=== PATIENT | male | born 1945 | race Caucasian/White ===

== ENCOUNTER 2017-05-21 00:41 | Inpatient (IN) | END 2017-05-22 15:30 | disposition home or self-care (01) | DRG 872 ==

== ENCOUNTER 2018-06-05 14:51 | Inpatient (IN) | payer OTHER ==
[~2018-06-05] VITALS: Ht 182.9 cm; Wt 127.0 kg
[~2018-06-05 14:51] MED LIST: AMOX1TAB10 PO; ATOR-2 PO; AZIT250T13 PO; BUPR150T18 PO; DICL100G37 TOP; DOCU-216 PO; HYDR-3498 PO; IPRA3AMP29 HHN; LANT3I SC; LEVO200T6 PO; LOSA100T15 PO; MONT10TA24 PO; MTF1000T PO; NEBU-113 MC; POLY17PO6 PO
[2018-06-05 14:55] VITALS: Ht 182.9 cm; Wt 127.0 kg
--- NOTE | 2018-06-05 15:17 | ERD ---
ER Documentation Chief Complaint Chief Complaint sob and cough since last night HPI 73-year-old man complains of shortness of breath, cough, wheezing since last night he does have a history of exercise-induced asthma but is not sure if today's symptoms are similar to his prior episodes of wheezing. He also complains of nasal congestion, rhinorrhea, and mild sore throat. Patient denies recent travel or antibiotic use, no sick contacts, no calf or leg swelling, no vomiting or diarrhea ROS All systems reviewed and are negative except as per history of present illness. Medications Home Meds Reported Medications Glimepiride* (Glimepiride*) 1 Mg Tablet, 1 MG PO WITH BREAKFAST DINNE, TAB 06/05/18 Liothyronine Sodium* (Cytomel*) 5 Mcg Tablet, 5 MCG PO BID, TAB 06/05/18 Metformin Hcl* (Metformin Hcl*) 1,000 Mg Tablet, 1000 MG PO WITH BREAKFAST DINNE, #60 TAB 06/05/18 Atorvastatin* (Atorvastatin*) 80 Mg Tablet, 80 MG PO QHS, #30 TAB 06/05/18 Discontinued Reported Medications Bupropion Hcl* (Bupropion Hcl SR*) 150 Mg Tablet.er, 150 MG PO BID, TAB.SA TAKE 1 TABLET BY MOUTH EVERYDAY FOR 3 DAYS, THEN 1 TABLET BY MOUTH TWICE DAILY 05/21/17 Atorvastatin* (Atorvastatin*) 80 Mg Tablet, 80 MG PO QHS, #30 TAB 05/21/17 Metformin* (Glucophage*) 1,000 Mg Tablet, 1000 MG PO BID, #60 TAB 05/21/17 Losartan Potassium* (Losartan Potassium*) 100 Mg Tablet, 100 MG PO DAILY, TAB 05/21/17 Montelukast Sodium* (Montelukast Sodium*) 10 Mg Tablet, 10 MG PO QHS, #30 TAB 05/21/17 Diclofenac Sodium* (Voltaren* Gel) 1% -100 Gm Gel, 2 GM TOP QID, #1 TUB 05/21/17 Discontinued Scripts Insulin Glargine* (Lantus*) 100 Unit/Ml Soln, 17 UNIT SC HS for 30 Days, #1 VIAL 6 Refills Prov:MARLENI CHRISTENSEN. 05/22/17 Ipratropium-Albuterol (Ipratropium-Albuterol) 0.5-3 Mg/3 Ml Ampul.neb, 3 ML HHN Q4H WHILE AWAKE PRN for sob, #30 AMP Prov:MARLENI CHRISTENSEN. 05/22/17 Docusate Sodium (Dok) 100 Mg Capsule, 100 MG PO BID for 30 Days, #60 CAP Prov:MARLENI CHRISTENSEN. 05/22/17 Polyethylene Glycol* (Miralax*) 17 Gm Powd.pack, 17 GM PO DAILY for 30 Days, #30 PACKET Prov:MARLENI CHRISTENSEN. 05/22/17 Azithromycin* (Azithromycin*) 250 Mg Tablet, 250 MG PO DAILY, #4 TAB Prov:MARLENI CHRISTENSEN. 05/22/17 Amoxicillin/Potassium Clav (Amox-Clav 875-125 mg Tablet) 875-125 mg Tab, 1 TAB PO BID for 8 Days, #16 TAB Prov:MARLENI CHRISTENSEN. 05/22/17 Levothyroxine Sodium* (Levothyroxine Sodium*) 200 Mcg Tablet, 175 MCG PO BEFORE BREAKFAST, #30 TAB Prov:MARLENI CHRISTENSEN. 05/22/17 Nebulizer (Aeroneb Go Nebuliser) 1 Each Each, 1 EACH MC Q4H, #1 Prov:MARLENI CHRISTENSEN. 05/22/17 Hydrocodone Bit-Acetaminophen* (Jeffers*) 5-325 Mg Tab, 1 TAB PO Q6 PRN for PAIN, #20 TAB Prov:KALANI MONTANO 03/02/15 Allergies Allergies: Coded Allergies: No Known Allergy (Unverified , 06/05/18) PMhx/Soc Paroxysmal atrial fibrillation, diabetes mellitus type 2, chronic hypothyroidism, obesity, hypertension, hypercholesterolemia History of Surgery: Yes (Rt in guinasl hernia repair) Anesthesia Reaction: No Hx Neurological Disorder: No Hx Respiratory Disorders: Yes (Asthma) Hx Cardiac Disorders: Yes (A-fib) Hx Psychiatric Problems: No Hx Miscellaneous Medical Probl: Yes Hx Alcohol Use: No Hx Substance Use: No Hx Tobacco Use: No Smoking Status: Never smoker FmHx Family History: diabetes Physical Exam Vitals Vital Signs Date Temp Pulse Resp B/P (MAP) Pulse Ox O2 O2 Flow FiO2 Time Delivery Rate 06/05/18 111 18 154/84 99 Nasal 2.0 16:36 (107) Cannula 06/05/18 Nasal 2 16:35 Cannula 06/05/18 102 22 100 Nasal 3.0 15:41 Cannula 06/05/18 98.3 110 22 120/87 94 14:55 (98) Physical Exam GENERAL: Well-developed, dyspneic, afebrile HEENT: Moist mucous membranes, pink conjunctiva, no cervical spine tenderness or step-off deformities, no goiter, no jaundice or icterus, extraocular movements intact without pain. No submandibular induration, and no pharyngeal erythema NEURO: Alert and oriented 3, cranial nerves II through XII intact bilaterally, pupils equal round reactive to light, no focal deficits or facial asymmetry, sensation intact distally Strength 5/5 in upper and lower extremities bilaterally CARDIAC: Tachycardic and regular LUNGS: Poor breath sounds bilaterally ABDOMEN: Soft nontender, no guarding, no rigidity, no rebound, no psoas sign no obturator sign. SKIN: Warm and dry to touch, no abrasions, contusions, or hematomas, no lacerations, no ecchymosis, no target lesions, and without ulcers EXTREMITIES: No clubbing cyanosis or edema, calves are bilaterally symmetrical, no Homans sign, no popliteal cord sign. Distal pulses equal and bilateral PSYCH: Normal affect without agitation or irritability Result Diagram: 06/05/18 1524 06/05/18 1524 Results 24 hrs Laboratory Tests Test 06/05/18 15:24 White Blood Count 14.0 10^3/ul Red Blood Count 4.08 10^6/ul Hemoglobin 13.2 g/dl Hematocrit 41.0 % Mean Corpuscular Volume 100.5 fl Mean Corpuscular Hemoglobin 32.4 pg Mean Corpuscular Hemoglobin Concent 32.2 g/dl Red Cell Distribution Width 12.6 % Platelet Count 218 10^3/UL Mean Platelet Volume 11.0 fl Immature Granulocytes % 0.400 % Neutrophils % 84.3 % Lymphocytes % 8.3 % Monocytes % 4.6 % Eosinophils % 2.1 % Basophils % 0.3 % Nucleated Red Blood Cells % 0.0 /100WBC Immature Granulocytes # 0.050 10^3/ul Neutrophils # 11.8 10^3/ul Lymphocytes # 1.2 10^3/ul Monocytes # 0.7 10^3/ul Eosinophils # 0.3 10^3/ul Basophils # 0.0 10^3/ul Nucleated Red Blood Cells # 0.0 10^3/ul Sodium Level 140 mmol/L Potassium Level 4.9 mmol/L Chloride Level 105 mmol/L Carbon Dioxide Level 26 mmol/L Anion Gap 9 Blood Urea Nitrogen 26 mg/dl Creatinine 1.22 mg/dl Est Glomerular Filtrat Rate mL/min mL/min Glucose Level 158 mg/dl Calcium Level 9.1 mg/dl Total Bilirubin 0.4 mg/dl Direct Bilirubin 0.00 mg/dl Indirect Bilirubin 0.4 mg/dl Aspartate Amino Transf (AST/SGOT) 42 IU/L Alanine Aminotransferase (ALT/SGPT) 28 IU/L Alkaline Phosphatase 89 IU/L Troponin I < 0.012 ng/ml B-Type Natriuretic Peptide 1020 PG/ML Total Protein 8.3 g/dl Albumin 4.3 g/dl Globulin 4.00 g/dl Albumin/Globulin Ratio 1.07 Lipase 20 U/L Current Medications Medications Dose Sig/Carole Start Time Status Last (Trade) Ordered Route PRN Stop Time Admin Dose Reason Admin Aspirin 324 mg ONCE ONCE 06/05/18 DC 06/05/18 (Aspirin) PO 15:30 15:27 06/05/18 15:31 Albuterol 10 mg ONCE STAT 06/05/18 DC 06/05/18 (Proventil INH 15:20 15:41 0.5% (Neb)) 06/05/18 15:22 125 mg ONCE STAT 06/05/18 DC 06/05/18 Methylprednis IV 15:20 15:27 olone Sodium 06/05/18 15:22 Succinate (Solu-Medrol) Furosemide 60 mg ONCE ONCE 06/05/18 DC (Lasix) IV 16:30 06/05/18 16:46 IV Flush 3 ml PER 06/05/18 (NS 3 ml) PROTOCOL IV 16:30 Ondansetron 4 mg Q6H PRN 06/05/18 UNV HCl (Zofran IV NAUSEA 16:30 Inj) AND/OR VOMITING 650 mg Q6H PRN 06/05/18 Acetaminophen PO PAIN 16:30 (Tylenol LEVEL 1-3 OR Tab) FEVER 1 tab Q6H PRN 06/05/18 Acetaminophen PO PAIN 16:30 / LEVEL 4-6 Hydrocodone Bitart (Jeffers (5/325)) Albuterol/ 3 ml Q6HWA RESP 06/05/18 DC Ipratropium THERAPY HHN 20:00 (Duoneb) 06/05/18 20:00 Albuterol/ 3 ml Q2H RESP 06/05/18 DC Ipratropium THERAPY PRN 17:00 (Duoneb) HHN 06/05/18 17:00 shortness of breath Budesonide 0.5 mg BID RESP 06/05/18 (Pulmicort THERAPY HHN 20:00 (Neb)) 100 ml @ Q24H IVPB 06/05/18 DC Levofloxacin/ 100 mls/hr 17:00 Dextrose 06/05/18 17:00 Azithromycin 250 ml @ Q24H IVPB 06/05/18 UNV 250 mls/hr 17:00 80 mg QHS PO 06/05/18 Atorvastatin 21:00 Calcium (Lipitor) 5 mcg BID PO 06/05/18 UNV Liothyronine 21:00 Sodium (Cytomel) Diltiazem 180 mg DAILY PO 06/05/18 HCl 17:00 (Cardizem Cd) 1.25 mg Q6H RESP 06/05/18 Levalbuterol THERAPY HHN 20:00 (Xopenex Neb) 1.25 mg Q4H RESP 06/05/18 Levalbuterol THERAPY PRN 17:00 (Xopenex HHN Neb) shortness of breath Ipratropium 0.5 mg Q6HWA RESP 06/05/18 [place] THERAPY HHN 20:00 (Atrovent 0.02% (Neb)) Ipratropium 0.5 mg Q4H RESP 06/05/18 [place] THERAPY PRN 17:00 (Atrovent HHN 0.02% SHORTNESS OF (Neb)) BREATH Promethazine 5 ml Q4H PRN 06/05/18 HCl/ PO COUGH 17:00 Codeine (Phenergan/ Codeine) Ipratropium 2 spray TID NASAL 06/05/18 [place] 21:00 (Atrovent Nasal) Fluticasone 1 spray BID NASAL 06/05/18 Propionate 21:00 (Flonase 0.05% Nasal) Discontinue ONCE ONCE 06/05/18 UNV Miscellaneous current oral XX 17:30 sulfonylur... 06/05/18 17:31 Information (* Miscellaneous Pharmacy Order) Diagnostic 1 ea 02 XX 06/06/18 Test (Pha) 02:00 (Accu-Chek) Insulin 18 units DAILY@199906/05/18 Glargine SC 20:00 (Lantus) Insulin 6 unit WITH MEALS 06/05/18 Aspart SC 18:00 (Novolog Insulin Pen) ONCE ONCE 06/05/18 DC Miscellaneous HYPOGLYCEMIA XX 17:30 PROTOCOL 06/05/18 17:45 Information w... (* Miscellaneous Pharmacy Order) Insulin NOVOLOG WITH MEALS 06/05/18 Aspart *MILD* BEDTIME SC 18:00 (Novolog ALGORITHM Insulin Pen) Discontinue ONCE ONCE 06/05/18 DC Miscellaneous all previ... XX 17:30 06/05/18 17:45 Information (* Miscellaneous Pharmacy Order) Sodium 1,000 ml @ Q24H IV 06/05/18 Chloride 40 mls/hr 17:30 06/06/18 18:29 Aspirin 81 mg DAILY PO 06/06/18 (Aspirin) 09:00 Procedures/MDM IV line was established patient was placed on environmental monitoring specialist rhythm strip revealed a narrow complex tachycardia at 110 bpm with upright P and T waves. Simeon tariq was afebrile. I do not suspect sepsis EKG performed, read by me revealed atrial fibrillation with rapid ventricular rate at 105 bpm, normal axis, narrow QRS complex, no concerning ST elevations or depressions noted 1 view chest x-ray performed, read by me revealed mild congestion bilaterally, no acute infiltrates, no pneumothorax. I administered albuterol 10 mg via nebulizer and methylprednisolone 125 mg IV x1. I also administered aspirin 324 mg p.o. for cardioprotective measures CBC reveals mild leukocytosis of 14, electrolytes revealed dehydration with a BUN/creatinine of 26/1.2, liver function tests are unremarkable, troponin was negative, influenza swabs are negative, BNP elevated. Given the patient's initial symptoms I administered furosemide 60 mg IV x1 as well Critical Care: Time: 49 minutes, this was time separate from other billable procedures. Treatments/Evaluations: Close monitoring and treatment of unstable vital signs, cardiorespiratory, and neurologic status, while maintaining tight balance of fluid, respiratory, and cardiac interventions. Patient remains symptomatic although his initial dyspnea and tachycardia have improved. He will be admitted to telemetry setting for continued medical management and cardiology consultation. Departure Diagnosis: Primary Impression: Atrial fibrillation with RVR Additional Impressions: Viral URI Acute dehydration CHF (congestive heart failure) Heart failure type: systolic Heart failure chronicity: acute Qualified Codes: I50.21 - Acute systolic (congestive) heart failure Condition: Fair JOHNATHAN GARCIA MD Jun 05, 2018 15:17
[2018-06-05] MEDS ORDERED: METHYLPREDNISOLONE 125 MG INJ IV STA (15:20)
[2018-06-05] MEDS ORDERED: ALBUTEROL 0.5% (NEB) 2.5 MG/0.5 ML AMP INH STA (15:20)
[2018-06-05] MEDS ORDERED: ASPIRIN 81 MG TAB PO ONE (15:30)
[2018-06-05] MEDS ORDERED: ATOR-2 PO (15:55)
[2018-06-05] MEDS ORDERED: METF100010 PO (15:55)
[2018-06-05] MEDS ORDERED: GLIM1TAB2 PO (15:56)
[2018-06-05] MEDS ORDERED: LIOT5TAB3 PO (15:56)
[2018-06-05] MEDS ORDERED: FUROSEMIDE 40 MG INJ IV ONE (16:30)
[2018-06-05] MEDS ORDERED: ACETAMINOPHEN 325 MG TAB PO PRN (16:30)
[2018-06-05] MEDS ORDERED: NACL 0.9% 3 ML SYG IV SCH (16:30)
[2018-06-05] MEDS ORDERED: ONDANSETRON 4 MG INJ IV PRN (16:30)
[2018-06-05] MEDS ORDERED: HYDROCODONE/APAP (5/325) TAB PO PRN (16:30)
[2018-06-05] MEDS ORDERED: LEVOFLOXACIN 500MG/D5W (PMX) 100 ML IVPB SCH (17:00)
[2018-06-05] MEDS ORDERED: ALBUTEROL/IPRATROPIUM (NEB) 3 ML AMP HHN PRN (17:00)
[2018-06-05] MEDS ORDERED: AZITHROMYCIN 500MG/NS (PMX) 250 ML IVPB SCH (17:00)
[2018-06-05] MEDS ORDERED: LEVALBUTEROL (NEB) 1.25 MG/0.5 ML AMP HHN PRN (17:00)
[2018-06-05] MEDS ORDERED: PROMETHAZINE/CODEINE 5ML CUP PO PRN (17:00)
[2018-06-05] MEDS ORDERED: IPRATROPIUM (NEB) 0.5 MG/2.5 ML AMP HHN PRN (17:00)
--- NOTE | 2018-06-05 17:14 | HP ---
Date/Time of Note Date/Time of Note DATE: 06/05/18 TIME: 17:14 Assessment/Plan VTE Prophylaxis Pharmacological prophylaxis: other Lines/Catheters IV C[facility]ter Type (from [facility] Saline Lock Assessment/Plan Hospital Course Objective Physical exam General: Patient is laying in bed and answers questions appropriately Mentation: Patient is alert and oriented 4, Head: Normocephalic atraumatic Eyes: EOMI, pupils reactive to light Neck: Supple, nontender, midline Respiratory: Coarse to auscultation bilaterally Cardiovascular: regular rate, no obvious murmurs Gastrointestinal: non-tender to palpation, bowel sounds heard. Neurological: Moves all extremities spontaneously Skin: No new skin lesions Assessment and plan Acute hypoxic respiratory distress -Secondary to uncontrolled cough -Patient likely has a viral upper respiratory infection versus developing pneumonia -BNP is elevated however checks x-ray is completely clear, at this time his sh ortness of breath is only caused by the cough so I do not feel CHF is the likely cause however will obtain echocardiogram. Sepsis, upper respiratory versus developing lower respiratory source -Lactic acid pending -Blood cultures pending Upper respiratory infection :viral versus developing pneumonia -IV azithromycin, patient follows with in the category of community-acquired pneumonia -Levalbuterol, ipratropium nebulizer -Budesonide nebulizer -Flu negative Cough -Given a dose of steroids in the ED -Codeine-based cough syrup -Secondary to above upper respiratory infection Atrial fibrillation with near RVR -Patient not on any rate controlling medication, also by choice is not on any anticoagulant. Patient does not like the risks associated with taking an anticoagulant, patient does understand all risks including stroke and other issues related to not anticoagulating and accepts all those risks. -Rate controlled however is on the higher limits -Cardiology consulted -We will start patient on mild to moderate dose diltiazem ER -Patient likely volume depleted, with clear chest x-ray and no overt symptoms of CHF other than a mildly elevated BNP, will gently hydrate, 1 dose only, which should also help the A. fib heart rate Diabetes mellitus -Insulin while in house Dyslipidemia -Continue home meds Disposition -Await cardiology consultation -Continue nebulizer treatment Result Diagram: 06/05/18 1524 06/05/18 1524 Results 24hrs Laboratory Tests Test 06/05/18 15:24 White Blood Count 14.0 #H Red Blood Count 4.08 L Hemoglobin 13.2 L Hematocrit 41.0 L Mean Corpuscular Volume 100.5 Mean Corpuscular Hemoglobin 32.4 Mean Corpuscular Hemoglobin Concent 32.2 Red Cell Distribution Width 12.6 Platelet Count 218 Mean Platelet Volume 11.0 H Immature Granulocytes % 0.400 Neutrophils % 84.3 H Lymphocytes % 8.3 L Monocytes % 4.6 Eosinophils % 2.1 Basophils % 0.3 Nucleated Red Blood Cells % 0.0 Immature Granulocytes # 0.050 H Neutrophils # 11.8 H Lymphocytes # 1.2 Monocytes # 0.7 Eosinophils # 0.3 Basophils # 0.0 Nucleated Red Blood Cells # 0.0 Sodium Level 140 Potassium Level 4.9 Chloride Level 105 Carbon Dioxide Level 26 Anion Gap 9 Blood Urea Nitrogen 26 H Creatinine 1.22 Est Glomerular Filtrat Rate mL/min Glucose Level 158 Calcium Level 9.1 Total Bilirubin 0.4 Direct Bilirubin 0.00 Indirect Bilirubin 0.4 Aspartate Amino Transf (AST/SGOT) 42 Alanine Aminotransferase (ALT/SGPT) 28 Alkaline Phosphatase 89 Troponin I < 0.012 B-Type Natriuretic Peptide 1020 H Total Protein 8.3 H Albumin 4.3 Globulin 4.00 H Albumin/Globulin Ratio 1.07 Lipase 20 L HPI/ROS Admit Date/Time Admit Date/Time Hx of Present Illness Patient is a 73-year-old male with a past medical history significant for c hronic A. fib, diabetes mellitus, hypothyroidism, dyslipidemia, exercise-induced asthma who presents to [facility] for persistent cough causing shortness of breath and subsequent chest wall pain. Patient states that he has been around his girlfriend who is having similar symptoms of upper respiratory issues as well as cough. Patient states that for the past day he has had a rula gged nose as well as persisting cough that is causing shortness of breath. He states that also whenever he coughs there is chest wall tightness causing chest pain. There is no chest pain whatsoever when he is not coughing. Patient currently is alert and oriented and doing well except for occasionally he does need to cough. Patient also states that there is significant nasal congestion however denies any fevers or chills at this time. Patient denies abdominal pain, leg pain, nausea, vomiting, headache. PMH/Family/Social Past Medical History Medications Current Medications IV Flush (NS 3 ml) 3 ml PER PROTOCOL IV ; Start 06/05/18 at 16:30; Status UNV Ondansetron HCl (Zofran Inj) 4 mg Q6H PRN IV NAUSEA AND/OR VOMITING; Start 06/05/18 at 16:30; Status UNV Acetaminophen (Tylenol Tab) 650 mg Q6H PRN PO PAIN LEVEL 1-3 OR FEVER; Start 06/05/18 at 16:30; Status UNV Acetaminophen/ Hydrocodone Bitart ([place] (5/325)) 1 tab Q6H PRN PO PAIN LEVEL 4-6; Start 06/05/18 at 16:30; Status UNV Budesonide (Pulmicort (Neb)) 0.5 mg BID RESP THERAPY HHN ; Start 06/05/18 at 20:00; Status UNV Azithromycin 250 ml @ 250 mls/hr Q24H IVPB ; Start 06/05/18 at 17:00; Status UNV Atorvastatin Calcium (Lipitor) 80 mg QHS PO ; Start 06/05/18 at 21:00; Status UNV Liothyronine Sodium (Cytomel) 5 mcg BID PO ; Start 06/05/18 at 21:00; Status UNV Diltiazem HCl (Cardizem Cd) 180 mg DAILY PO ; Start 06/05/18 at 17:00; Status UNV Levalbuterol (Xopenex Neb) 1.25 mg Q6H RESP THERAPY HHN ; Start 06/05/18 at 20:00; Status UNV Levalbuterol (Xopenex Neb) 1.25 mg Q4H RESP THERAPY PRN HHN shortness of breath; Start 06/05/18 at 17:00; Status UNV Ipratropium [place] (Atrovent 0.02% (Neb)) 0.5 mg Q6HWA RESP THERAPY HHN ; Start 06/05/18 at 20:00; Status UNV Ipratropium [place] (Atrovent 0.02% (Neb)) 0.5 mg Q4H RESP THERAPY PRN HHN SH ORTNESS OF BREATH; Start 06/05/18 at 17:00; Status UNV Promethazine HCl/ Codeine (Phenergan/ Codeine) 5 ml Q4H PRN PO COUGH; Start 06/05/18 at 17:00; Status UNV Ipratropium [place] (Atrovent Nasal) 2 spray TID NASAL ; Start 06/05/18 at 21:00; Status UNV Fluticasone Propionate (Flonase 0.05% Nasal) 1 spray BID NASAL ; Start 06/05/18 at 21:00; Status UNV Miscellaneous Information (* Miscellaneous Pharmacy Order) Discontinue current oral sulfonylur... ONCE ONCE XX ; Start 06/05/18 at 17:30; Stop 06/05/18 at 17:31; Status UNV Diagnostic Test (Pha) (Accu-Chek) XX ; Start 06/06/18 at 02:00; Status UNV Insulin Glargine (Lantus) 18 units DAILY@2000 SC ; Start 06/05/18 at 20:00; Status UNV Insulin Aspart (Novolog Insulin Pen) 6 unit WITH MEALS SC ; Start 06/05/18 at 18:00; Status UNV Miscellaneous Information (* Miscellaneous Pharmacy Order) HYPOGLYCEMIA PROTOCOL w... ONCE ONCE XX ; Start 06/05/18 at 17:30; Stop 06/05/18 at 17:31; Status UNV Insulin Aspart (Novolog Insulin Pen) NOVOLOG *MILD* ALGORITHM WITH MEALS BEDTIME SC ; Start 06/05/18 at 18:00; Status UNV Miscellaneous Information (* Miscellaneous Pharmacy Order) Discontinue all previ... ONCE ONCE XX ; Start 06/05/18 at 17:30; Stop 06/05/18 at 17:31; Status UNV Sodium Chloride 1,000 ml @ 40 mls/hr Q24H IV ; Start 06/05/18 at 17:30; Stop 06/06/18 at 18:29; Status UNV Coded Allergies: No Known Allergy (Unverified , 06/05/18) Social History Smoking Status: Never smoker Exam/Review of Systems Vital Signs Vitals Vital Signs Date Temp Pulse Resp B/P (MAP) Pulse Ox O2 O2 Flow FiO2 Time Delivery Rate 06/05/18 111 18 154/84 99 Nasal 2.0 16:36 (107) Cannula 06/05/18 98.3 14:55 JOHNATHAN HERNANDEZ Jun 05, 2018 17:14
[2018-06-05] MEDS ORDERED: SOD CHLORIDE 0.9% 1,000 ML IV SCH (17:30)
[2018-06-05] MEDS ORDERED: GLUCOSE GEL 15 GRAM TUBE PO PRN ×2 (18:00)
[2018-06-05] MEDS ORDERED: GLUCOSE GEL 15 GRAM TUBE BUCCAL PRN (18:00)
[2018-06-05] MEDS ORDERED: GLUCAGON 1 MG INJ IM PRN (18:00)
[2018-06-05] MEDS ORDERED: DEXTROSE 50% 50 ML SYRINGE IV PRN ×2 (18:00)
[2018-06-05] MEDS ORDERED: NITROGLYCERIN 50 MG/D5W (PMX) 0 ML ONE (18:22)
[2018-06-05] MEDS: DILTIAZEM (CD) 180 MG CAP PO SCH (18:37)
[2018-06-05] MEDS: INSULIN ASPART [NOVOLOG] 3 ML PEN SC SCH ×3 (19:13→22:50)
[2018-06-05] MEDS ORDERED: INSULIN GLARGINE [LANTus] (100 UNITS/ML) SYG SC SCH (20:00)
[2018-06-05] MEDS ORDERED: ALBUTEROL/IPRATROPIUM (NEB) 3 ML AMP HHN SCH (20:00)
--- NOTE | 2018-06-05 20:08 | CONS ---
DATE OF ADMISSION: 06/05/2018 DATE OF CONSULTATION: 06/05/2018 TYPE OF CONSULTATION: Cardiology. REASON FOR CONSULTATION: Atrial fibrillation. REQUESTING PHYSICIAN: Darell Martinez MD, from the hospitalist service. HISTORY OF PRESENT ILLNESS: Mr. Epperson is a 73-year-old male with a history of atrial fibrillation on aspirin per patients choice, diabetes mellitus, dyslipidemia, who presented with a cough productive of yellow sputum, subjective fevers, nasal congestion, shortness of breath and chest pain with cough only. Upon arrival, temperature was 98.3, blood pressure 120/87, pulse 110, respiration 22, satting 94%. The patient's labs are notable for white blood cell count of 14, hemoglobin 13.2, platelet count of 218, sodium 140, potassium 4.9, creatinine 1.22, BUN 26, AST 42, ALT 28, BNP of 1020, troponin negative, lipase 20, albumin 4.3. The patient underwent a chest x-ray revealing no evidence of acute intrathoracic pathology. The patient's electrocardiogram revealed atrial fibrillation, rate of 105, normal axis, normal intervals, nonspecific ST and T-wave abnormalities diffusely. The patient is to be admitted to the floor at this time waiting in the ER. The patient has been treated at this time with nebulized treatments and given dose of levofloxacin. The patient has been placed on a diltiazem once a day for heart rate control. PAST MEDICAL HISTORY: As above in HPI. MEDICATIONS CURRENTLY IN HOSPITAL: 1. Aspirin 81 mg daily. 2. Lipitor 80 mg at bedtime. 3. Cytomel. 4. Atrovent. 5. Flonase. 6. Pulmicort. 7. Xopenex. 8. Lantus. 9. Azithromycin. 10. Diltiazem-CD 180 mg daily. 11. Xopenex. 12. Phenergan. ALLERGIES: NO KNOWN DRUG ALLERGIES. SOCIAL HISTORY: No current tobacco, EtOH or illicit drug use. FAMILY HISTORY: No history of sudden cardiac or early CAD. REVIEW OF SYSTEMS: As above in HPI. CONSTITUTIONAL: No fevers, chills. PULMONARY: Shortness of breath. CARDIOVASCULAR: Atrial fibrillation. GASTROINTESTINAL: No vomiting. GENITOURINARY: No hematuria. MUSCULOSKELETAL: Degenerative joint disease. PSYCHIATRIC: The patient denies depression. NEUROLOGIC: No documented history of CVA. PHYSICAL EXAMINATION VITAL SIGNS: Temperature of 98.3, blood pressure 156/84, pulse 97, respiratory rate 18, satting 94% on room air. GENERAL: The patient is alert, awake, in no acute distress, complaining of shortness of breath. NECK: JVP approximately is 8 to 9 cm of water. CHEST: Fair air movement throughout. HEART: Irregularly irregular, I/ systolic murmur. ABDOMEN: Positive bowel sounds, soft. EXTREMITIES: No significant pitting edema, 1+ pulses bilateral posterior tibial. LABORATORIES: Most recently from today with a lactic acid of 2.0. No further new labs for my review at this time. IMAGING STUDIES: As above in HPI. No further imaging for my review at this time. ELECTROCARDIOGRAM: As above in HPI. No further electrocardiograms for my review at this time. IMPRESSION: 1. Atrial fibrillation with intermittent mild rapid ventricular response. 2. Hypertension. 3. Dyslipidemia. 4. Upper respiratory infection. 5. Leukocytosis. RECOMMENDATIONS: 1. At this time, we would admit the patient to telemetry monitoring to follow rhythm and rate control closely. 2. Continue the patient's diltiazem-CD for multiple rate control and we give IV push diltiazem for acute rate control as necessary. 3. Continue the patient's aspirin at this time for prophylaxis against cardiovascular events. The patient per choice does not want systemic anticoagulation. 4. Continue the patient's antibiotics and follow up all culture data. 5. Continue the patient's bronchodilators. 6. Check a 2D echo for this patient's ejection fraction, wall motion and major valve abnormalities and we will check a TSH to be sure subclinical hyperthyroidism is not contributing to bouts of tachyarrhythmia. Thank you for allowing me to take part in the care of this patient. I will continue to follow him very closely with you with further recommendations to be made as the patient progresses through his inpatient hospital clinical course. Dictated By: JUDITH STRATTON/CHRISTINA Conf#: [id number] DID#: [id number] CC: DARELL GARCIA MD; DARELL MARTINEZ MD;*End* MTDD
[2018-06-05] MEDS: LIOTHYRONINE 5 MCG TAB PO SCH (20:54)
[2018-06-05] MEDS: IPRATROPIUM 0.03% 30 ML NASAL SPRAY NASAL SCH (21:00)
[2018-06-05] MEDS ORDERED: ATORVASTATIN 80 MG TAB PO SCH (21:00)
[2018-06-05 21:36] VITALS: PULSE 89
[2018-06-05] MEDS: IPRATROPIUM (NEB) 0.5 MG/2.5 ML AMP HHN SCH (21:46)
[2018-06-05] MEDS: BUDESONIDE (NEB) 0.5MG/2ML AMP HHN SCH (21:47)
[2018-06-05] MEDS: LEVALBUTEROL (NEB) 1.25 MG/0.5 ML AMP HHN SCH (21:47)
[2018-06-05] MEDS: FLUTICASONE 0.05% 16 GM NAS SPRAY NASAL SCH (22:50)
[2018-06-06] VITALS (8 sets, daily range): BP systolic 91–135; BP diastolic 59–86; PULSE 63–98; RESP 18–19
[2018-06-06] MEDS: LEVALBUTEROL (NEB) 1.25 MG/0.5 ML AMP HHN SCH ×3 (01:43→13:53)
[2018-06-06] MEDS ORDERED: ACCU-CHEK XX SCH ×2 (02:00→11:20)
[2018-06-06] MEDS ORDERED: INSULIN ASPART [NOVOLOG] 3 ML PEN SC ONE (03:30)
[2018-06-06] MEDS: IPRATROPIUM (NEB) 0.5 MG/2.5 ML AMP HHN SCH ×2 (08:00→13:53)
[2018-06-06] MEDS: IPRATROPIUM 0.03% 30 ML NASAL SPRAY NASAL SCH ×2 (08:20→12:38)
[2018-06-06] MEDS: DILTIAZEM (CD) 180 MG CAP PO SCH (08:30)
[2018-06-06] MEDS: LIOTHYRONINE 5 MCG TAB PO SCH (08:32)
[2018-06-06] MEDS: INSULIN ASPART [NOVOLOG] 3 ML PEN SC SCH ×4 (08:45→12:37)
[2018-06-06] MEDS ORDERED: ASPIRIN 81 MG TAB PO SCH (09:00)
[2018-06-06] MEDS: FLUTICASONE 0.05% 16 GM NAS SPRAY NASAL SCH (09:50)
[2018-06-06] MEDS: BUDESONIDE (NEB) 0.5MG/2ML AMP HHN SCH (09:59)
[2018-06-06] MEDS ORDERED: APIXABAN 5 MG TABLET PO SCH (11:30)
[2018-06-06] MEDS ORDERED: MAGNESIUM SULFATE 2 GM/50 ML 50 ML IVPB ONE (11:30)
--- NOTE | 2018-06-06 11:36 | PDOCDIS ---
Discharge Instructions CONDITION [id number] Patient Condition: [id number] Stable HOME CARE INSTRUCTIONS: [id number] Your diet recommendation is: [id number] [id number] Activity Restrictions: [id number] Slowly Increase Activity Rest between Activity FOLLOW UP/APPOINTMENTS Follow-up Plan 1. Please follow-up with your primary care doctor as soon as possible, you have a lot of abnormalities that need to be corrected 2. Also follow-up with your gas meter installer helper. Dr Charlton. I have spoken with him, he is awaiting a call 3. Also follow-up with your salon designer, Dr. Landon, they have been notified and will be expecting a call. 4. Stay compliant with your medications. It is very important. MARLENI CHRISTENSEN Jun 06, 2018 11:36
[2018-06-06] MEDS ORDERED: LEVOTHYROXINE 100 MCG TAB PO SCH (12:00)
--- NOTE | 2018-06-06 12:57 | RADRPT ---
Vent Rate: 90 bpm RR Interval: 0 msec WI Interval: 0 msec QRS Duration: 86 msec QT Interval: 358 msec QTC Interval: 437 msec P-R-T Hooper: 0 - 75 - -58 degrees Atrial fibrillation Nonspecific ST and T wave abnormality , probably digitalis effect Abnormal ECG Electronically Signed By: Jonah Fernandez [id number]
[2018-06-06] MEDS ORDERED: INSULIN GLARGINE [LANTus] (100 UNITS/ML) SYG SC ONE (13:00)
[2018-06-06] MEDS ORDERED: AZIT250T13 PO (13:56)
[2018-06-06] MEDS ORDERED: ASPI-831 PO (13:56)
[2018-06-06] MEDS ORDERED: LEVO100T8 PO (13:56)
[2018-06-06] MEDS ORDERED: LANT3I SC (13:56)
[2018-06-06] MEDS ORDERED: IPRA4AER INHALATION (13:56)
[2018-06-06] MEDS ORDERED: DILT180C72 PO (13:56)
[2018-06-06] MEDS ORDERED: metFORMIN 500 MG TAB PO SCH (17:55)
--- NOTE | 2018-06-06 19:06 | RADRPT ---
Echocardiogram Report Patient Name: ROMEL CANCHOLA Gender: Male Date: 1945 Study Date: 06-Jun-2018 Incident Response Specialist: Susanna Herrera [facility] Location: 525 Ref. Physician: JOHNATHAN HERNANDEZ Quality: Adequate Procedures: Transthoracic echocardiogram with complete 2D, M-Mode, and doppler examination. Indications: Congestive Heart Failure. 2D/M Mode Doppler Measurement Value Normal Ranges Measurement Value Normal Ranges LVIDd 2D 5.0 3.5 - 5.6 cm AV Peak Jadon 1.1 m/sec LVIDs 2D 2.5 2.1 - 4.1 cm AV Peak PG 5.0 mmHg LVPWd 2D 1.2 0.6 - 1.1 cm LVOT Peak Jadon 0.8 m/sec IVSd 2D 1.1 0.6 - 1.1 cm LVOT Peak PG 3.0 mmHg AoR Diam 2D 2.9 2.0 - 3.7 cm TR Peak Jadon 2.8 m/sec LA/Ao 2D 1 0 - 1 TR Peak PG 32.0 mmHg LA Dimen 2D 3.9 2.3 - 4.0 cm RVSP 47.0 mmHg RA Pressure 15.0 Findings Left Ventricle: Normal left ventricular systolic function. Normal left ventricular cavity size. Mild concentric left ventricular hypertrophy. Ejection fraction is visually estimated at 60 %. Right Ventricle: Normal right ventricular systolic function. Mild enlargement of right ventricle. Left Atrium: The left atrium is normal in size. Right Atrium: There is mild enlargement of right atrium. Mitral Valve: Normal appearance and function of the mitral valve with trace physiologic regurgitation. Aortic Valve: Normal appearance of the aortic valve. No significant aortic stenosis or insufficiency. Tricuspid Valve: Normal appearance of the tricuspid valve. Estimated peak PA systolic pressure 47 mmHg. There is mild tricuspid regurgitation. Pulmonic Valve: Pulmonic valve not well visualized. Pericardium: Normal pericardium with no significant pericardial effusion. Aorta: Normal aortic root. IVC: Dilated IVC without respiratory collapse consistent with elevated right atrial pressure. Conclusions Normal left ventricular systolic function. Normal left ventricular cavity size. Mild concentric left ventricular hypertrophy. Ejection fraction is visually estimated at 60 %. Normal right ventricular systolic function. Mild enlargement of right ventricle. There is mild enlargement of right atrium. Normal appearance and function of the mitral valve with trace physiologic regurgitation. Normal appearance of the tricuspid valve. Estimated peak PA systolic pressure 47 mmHg. There is mild tricuspid regurgitation. Electronically Signed By: Osorio López 06-Jun-2018 19:05:39 -0800 Patient Name: ROMEL CANCHOLA Study Date: 06-Jun-2018 [id number]
--- NOTE | 2018-06-12 09:16 | DS ---
DATE OF ADMISSION: 06/05/2018 DATE OF DISCHARGE: 06/06/2018 PRESENTING COMPLAINTS: Chest pain, cough and shortness of breath. FINAL DIAGNOSEs: 1. Atrial fibrillation with intermittent mild rapid ventricular response, currently rate controlled. 2. Hypertension. 3. Dyslipidemia. 4. Upper respiratory infection. 5. Leukocytosis. 6. Chronic kidney disease. 7. Diabetes mellitus type 2 with suboptimal control. 8. Hypothyroidism with suboptimal home control. 9. Hyperkalemia, resolved. 10. Chronic hypochromic anemia. CONSULTS ON THE CASE: Dr. Osorio López for cardiology. INTERVENTIONS: The patient underwent a 2D echocardiogram that showed ejection fraction of 60% with e levation in his peak PA systolic pressure mildly of 47 and mild tricuspid regurgitation. SHORT HOSPITALIZATION COURSE: Full details are available in chart for review. SUMMARY: In summary, this patient came in with complaints of cough, shortness of breath and chest pa in and was found to be in mild rapid ventricular response from atrial fibrillation and was also found to have an upper respiratory tract infection causing the symptoms. However, all his chronic conditi ons were out of control including his diabetes as well as his hypothyroidism and even his blood press ure. The patient's control was improved, and he was recommended to stay in the hospital for continue d hospitalization until optimal control; however, the patient's requested to be discharged. He does have a primary care doctor and he follows with Dr. Charlton for endocrinology, and he promised that he w as going to see them as soon as possible. He did admit to not taking his medication and requested re fills of all his medicines, which are provided to him. We did communicate to him that his hypothyroi dism was poorly controlled. Apparently at home he had been only taking his Cytomel and was not takin g levothyroxine. I spoke with Dr. Charlton and he said he needed to be on both, so the Levothyroxine wa s re-prescribed. He was also started on Lantus in addition to his metformin, which he had not been t aking as well, which is the reason for his high blood sugar. He was started on empiric antibiotics f or an upper respiratory infection and was advised that he be continued with suboptimal control of his care and he will be probably going to end up with more sinister side effects. He verbalized underst anding. Again, we did offer to give the patient in house to ensure optimization of his chronic medic al conditions, but the patient declined and actually was very, very demanding to be discharged early. I was able to convince him to wait for cardiology to see him and get a relationship and information to facilitate outpatient followup, which he did and eventually he was discharged in stable condition to continue his care and treatment outpatient. DISCHARGE CONDITION: Stable. FINAL DIAGNOSES: As above. DISCHARGE MEDICATION: Please review the patient's chart. DIET: Recommended diet is 1800-calorie diabetic diet, low cholesterol, low fat. ACTIVITY: As tolerated with 3 days of 10 minutes of exercise recommended per week. FOLLOWUP: The patient will follow up with his primary care doctor. He will also follow up with Dr. Charlton for endocrinology, and he will also follow up with Dr. Osorio López for cardiology at the [facility]. Time spent on discharge coordination has been more than 90 minutes. Dictated By: MARLENI CHRISTENSEN MD BA/NTS Conf#: [id number] DID#: [id number] CC: JOHNATHAN HERNANDEZ MD; MARLENI CHRISTENSEN MD;*EndCC*
== END 2018-06-06 14:40 | disposition home or self-care (01) | DRG 308 ==
LOC: E/R 14:51 → TEL 16:40
PROVIDERS: ADMIT Internal Medicine; ATTEND Family Medicine
DX: I48.0 Paroxysmal atrial fibrillation (principal); I50.21 Acute systolic (congestive) heart failure; I13.0 Hypertensive heart and chronic kidney disease with heart failure and stage 1 through stage 4 chronic kidney disease, or unspecified chronic kidney disease; E03.9 Hypothyroidism, unspecified; E11.9 Type 2 diabetes mellitus without complications; E66.9 Obesity, unspecified; Z68.38 Body mass index [BMI] 38.0-38.9, adult; E78.00 Pure hypercholesterolemia, unspecified; E86.0 Dehydration; I11.0 Hypertensive heart disease with heart failure; J06.9 Acute upper respiratory infection, unspecified; N18.9 Chronic kidney disease, unspecified; E87.5 Hyperkalemia; D50.9 Iron deficiency anemia, unspecified; R06.03 Acute respiratory distress
CPT/HCPCS: 36415; 71045; 80048; 80053; 80061; 82962; 83036; 83605; 83690; 83735; 83880; 84439; 84443; 84481; 84484; 85025; 87040; 87400; 93005; 93306; 94640; 94644; 96374; J0456; J1815; J2930; J3475; J7030

== ENCOUNTER 2018-06-21 13:09 | Emergency (ER) | payer OTHER ==
[~2018-06-21] VITALS: Ht 182.9 cm; Wt 123.0 kg
[~2018-06-21 13:09] MED LIST changes: -AMOX1TAB10 PO; +ASPI-831 PO; -BUPR150T18 PO; -DICL100G37 TOP; +DILT180C72 PO; -DOCU-216 PO; +GLIM1TAB2 PO; -HYDR-3498 PO; -IPRA3AMP29 HHN; +IPRA4AER INHALATION; +LEVO100T8 PO; -LEVO200T6 PO; +LIOT5TAB3 PO; -LOSA100T15 PO; +METF100010 PO; -MONT10TA24 PO; -MTF1000T PO; -NEBU-113 MC; -POLY17PO6 PO
[2018-06-21 13:11] VITALS: Ht 182.9 cm; Wt 123.0 kg
[2018-06-21] MEDS ORDERED: SOD CHLORIDE 0.9% 1,000 ML IV STA (13:23)
[2018-06-21] MEDS ORDERED: LORAZEPAM 2 MG INJ IV ONE (13:30)
[2018-06-21] MEDS ORDERED: MECLIZINE 12.5 MG TAB PO ONE (13:30)
--- NOTE | 2018-06-21 14:11 | ERD ---
ER Documentation Chief Complaint Chief Complaint dizziness, diaphretic ongoing for 1wk, seen by pmd yesterday HPI 73-year-old gentleman history of atrial fibrillation not anticoagulated who presents to the emergency room complaining of dizziness. He states he is having episodes of dizziness and feeling diaphoretic and nauseated. This is been going on for approximately 1 week. He was told to come to the emergency room by his primary care physician who he saw yesterday. He denies any slurred speech but occasionally has ataxic gait. No motor weakness. Symptoms are moderate at this time but he does have associated nausea and vomiting that is nonbloody nonbilious. ROS All systems reviewed and are negative except as per history of present illness. Medications Home Meds Active Scripts Meclizine Hcl* (Meclizine Hcl*) 25 Mg Tablet, 25 MG PO Q8H PRN for DIZZINESS, #30 TAB Prov:LLUVIA ROOT MD 06/21/18 Insulin Glargine* (Lantus*) 100 Unit/Ml Soln, 24 UNIT SC DAILY, #1 VIAL 1 Refill Prov:MARLENI CHRISTENSEN 06/06/18 Albuterol/Ipratropium* (Combivent Respimat*) 20-100 Mcg/Inh - 4 Gm Aer.w.adap, 1 PUFF INHALATION Q4H WHILE AWAKE, #1 INHALER Prov:MARLENI CHRISTENSEN 06/06/18 Diltiazem Hcl* (Cardizem CD*) 180 Mg Cap.sr.24h, 180 MG PO DAILY, #30 TAB 1 Refill Prov:MARLENI CHRISTENSEN 06/06/18 Reported Medications Levothyroxine Sodium* (Levothyroxine Sodium*) 100 Mcg Tablet, 100 MCG PO BEFORE BREAKFAST, #30 TAB 06/21/18 Rivaroxaban* (Xarelto*) 20 Mg Tablet, 20 MG PO WITH DINNER, TAB 06/21/18 Liothyronine Sodium* (Cytomel*) 5 Mcg Tablet, 5 MCG PO BID, TAB 06/05/18 Metformin Hcl* (Metformin Hcl*) 1,000 Mg Tablet, 1000 MG PO WITH BREAKFAST DINNE, #60 TAB 06/05/18 Atorvastatin* (Atorvastatin*) 80 Mg Tablet, 80 MG PO QHS, #30 TAB 06/05/18 Discontinued Reported Medications Glimepiride* (Glimepiride*) 1 Mg Tablet, 1 MG PO WITH BREAKFAST DINNE, TAB 06/05/18 Discontinued Scripts Azithromycin* (Azithromycin*) 250 Mg Tablet, 250 MG PO DAILY, #4 TAB Prov:MARLENI CHRISTENSEN. 06/06/18 Levothyroxine Sodium* (Levothyroxine Sodium*) 100 Mcg Tablet, 200 MCG PO DAILY@06, #30 TAB 1 Refill Prov:MARLENI CHRISTENSEN. 06/06/18 Aspirin (Aspirin) 81 Mg Chew, 81 MG PO DAILY, #30 TAB 1 Refill Prov:MARLENI CHRISTENSEN. 06/06/18 Allergies Allergies: Coded Allergies: No Known Allergy (Unverified , 06/21/18) PMhx/Soc History of Surgery: Yes (RT INGUINAL HERNIA REPAIR) Anesthesia Reaction: No Hx Neurological Disorder: No Hx Respiratory Disorders: Yes (EXERCISE INDUCED ASTHMA, ASTHMA) Hx Cardiac Disorders: Yes (AF) Hx Psychiatric Problems: No Hx Miscellaneous Medical Probl: Yes (DM) Hx Alcohol Use: No Hx Substance Use: No Hx Tobacco Use: No Smoking Status: Never smoker FmHx Family History: No diabetes Physical Exam Vitals Vital Signs Date Temp Pulse Resp B/P (MAP) Pulse Ox O2 O2 Flow FiO2 Time Delivery Rate 06/21/18 83 18 137/88 99 Room Air 13:30 (104) 06/21/18 97.0 80 20 149/92 97 13:11 (111) Physical Exam General: Well developed, well nourished, no acute distress Head: Normocephalic, atraumatic. Eyes: Pupils equally reactive, EOM intact and consistent with possible vertical component to nystagmus ENT: Moist mucous membranes Neck: Supple, no lymphadenopathy Respiratory: Lungs clear bilaterally, no distress Cardiovascular: Irregular, no murmurs, rubs, or gallops Abdominal: Soft, non-tender, non-distended, no peritoneal signs : Deferred MSK: No edema, no unilateral swelling, 5/5 strength Neurologic: Alert and oriented, moving all extremities, normal speech, no focal weakness, no cerebellar signs Skin: No rash Psych: Normal mood Result Diagram: 06/21/18 1345 06/21/18 1345 Results 24 hrs Laboratory Tests Test 06/21/18 13:45 06/21/18 13:48 White Blood Count 10.7 10^3/ul Red Blood Count 4.03 10^6/ul Hemoglobin 12.9 g/dl Hematocrit 40.0 % Mean Corpuscular Volume 99.3 fl Mean Corpuscular Hemoglobin 32.0 pg Mean Corpuscular Hemoglobin Concent 32.3 g/dl Red Cell Distribution Width 12.7 % Platelet Count 216 10^3/UL Mean Platelet Volume 11.0 fl Immature Granulocytes % 0.400 % Neutrophils % 65.5 % Lymphocytes % 26.7 % Monocytes % 4.5 % Eosinophils % 2.5 % Basophils % 0.4 % Nucleated Red Blood Cells % 0.0 /100WBC Immature Granulocytes # 0.040 10^3/ul Neutrophils # 7.0 10^3/ul Lymphocytes # 2.9 10^3/ul Monocytes # 0.5 10^3/ul Eosinophils # 0.3 10^3/ul Basophils # 0.0 10^3/ul Nucleated Red Blood Cells # 0.0 10^3/ul Prothrombin Time 11.7 Sec Prothrombin Time Ratio 0.9 INR International Normalized Ratio 0.85 Activated Partial Thromboplast Time 25.8 Sec Sodium Level 139 mmol/L Potassium Level 4.7 mmol/L Chloride Level 109 mmol/L Carbon Dioxide Level 25 mmol/L Anion Gap 5 Blood Urea Nitrogen 21 mg/dl Creatinine 1.30 mg/dl Est Glomerular Filtrat Rate mL/min mL/min Glucose Level 260 mg/dl Calcium Level 9.0 mg/dl Total Bilirubin 0.4 mg/dl Direct Bilirubin 0.00 mg/dl Indirect Bilirubin 0.4 mg/dl Aspartate Amino Transf (AST/SGOT) 38 IU/L Alanine Aminotransferase (ALT/SGPT) 33 IU/L Alkaline Phosphatase 70 IU/L Troponin I < 0.012 ng/ml Total Protein 7.7 g/dl Albumin 3.9 g/dl Globulin 3.80 g/dl Albumin/Globulin Ratio 1.02 Bedside Glucose 251 mg/dL Current Medications Medications Dose Sig/Carole Start Time Status Last (Trade) Ordered Route PRN Stop Time Admin Dose Reason Admin Sodium 1,000 ml @ Q1H STAT 06/21/18 DC 06/21/18 Chloride 1,000 mls/hr IV 13:23 06/21/18 13:51 14:22 Meclizine 25 mg ONCE ONCE 06/21/18 DC 06/21/18 HCl PO 13:30 06/21/18 13:50 (Antivert) 13:31 Lorazepam 0.5 mg ONCE ONCE 06/21/18 DC 06/21/18 (Ativan) IV 13:30 06/21/18 13:50 13:31 Aspirin 162 mg ONCE ONCE 06/21/18 DC 06/21/18 (Aspirin) PO 14:30 06/21/18 14:46 14:31 Ondansetron 4 mg ER BRIDGE 06/21/18 HCl (Zofran PRN IV 14:30 06/22/18 Inj) NAUSEA/VOMITI 14:29 NG 650 mg ER BRIDGE 06/21/18 Acetaminophen PRN PO 14:30 06/22/18 (Tylenol .MILD PAIN 14:29 Tab) 1-3 OR TEMP Sodium 1,000 ml @ Q24H IV 06/21/18 Chloride 40 mls/hr 14:41 06/22/18 15:40 IV Flush 3 ml PER 06/21/18 (NS 3 ml) PROTOCOL IV 15:00 Ondansetron 4 mg Q6H PRN 06/21/18 HCl (Zofran IV 15:00 Inj) NAUSEA/VOMITI NG 650 mg Q6H PRN 06/21/18 Acetaminophen PO .PAIN 1-3 15:00 (Tylenol OR TEMP Tab) 1 tab Q6H PRN 06/21/18 Acetaminophen PO .PAIN 4-6 15:00 / Hydrocodone Bitart ([place] (5/325)) Meclizine 25 mg TID PRN 06/21/18 HCl PO dizziness 15:00 (Antivert) Procedures/MDM EKG, MONITORS, & DIAGNOSTIC IMAGING: EKG: I reviewed and interpreted a 12-lead EKG. Rhythm: Atrial fibrillation, rate controlled ST Changes: No contiguous ST segment elevations T waves: No contiguous T wave inversions Impression: No evidence of acute cardiac ischemia CT brain: No acute process per radiologist read LAB INTERPRETATION: * Slight hyperglycemia, mild renal insufficiency MEDICAL DECISION MAKING: The patient presents with dizziness and nausea and vomiting that seems to be consistent with vertigo. My concern is the patient has atrial fibrillation, is not appropriately anticoagulated and has approximately 1 week of vague symptoms. There is also potentially a slight vertical component to his nystagmus. All of this is somewhat concerning for central vertigo and I would recommend hospitalization for MRI imaging. ER COURSE: * The patient was given IV fluids, benzodiazepine and meclizine. * CT brain is negative * Aspirin provided CONSULTATION: None DISPOSITION PLAN: The patient was advised that he should be admitted for rule out of possible central vertigo. The patient states that he feels better and does not wish to be admitted. We had a conversation understand the risk benefits alternatives and he understands that my recommendation is hospitalization. He has informed decision making and has capacity. The patient does not wish to be admitted. He was advised that he may need outpatient MRI imaging and needs to have a conversation with his primary care physician regarding anticoagulation. He has refused anticoagulation in a recent inpatient hospital stay. The patient does not have an identifiable emergent medical condition that warrants inpatient hospitalization at this time. The patient is deemed safe for discharge with outpatient follow-up. We discussed follow up with the patient's primary care doctor within 24 to 48 hours as needed. We also discussed return to the emergency room for worsening symptoms or worsening condition. Outpatient referral: None required Discharge Medications: Meclizine Departure Diagnosis: Primary Impression: Vertigo Additional Impression: Atrial fibrillation with controlled ventricular rate Condition: Stable LLUVIA ROOT MD Jun 21, 2018 14:11
[2018-06-21] MEDS ORDERED: ONDANSETRON 4 MG INJ IV PRN ×2 (14:30→15:00)
[2018-06-21] MEDS ORDERED: ACETAMINOPHEN 325 MG TAB PO PRN ×2 (14:30→15:00)
[2018-06-21] MEDS ORDERED: ASPIRIN 81 MG TAB PO ONE (14:30)
[2018-06-21] MEDS ORDERED: RIVA20TA5 PO (14:37)
[2018-06-21] MEDS ORDERED: LEVO100T8 PO (14:40)
[2018-06-21] MEDS ORDERED: SOD CHLORIDE 0.9% 1,000 ML IV SCH (14:41)
[2018-06-21] MEDS ORDERED: NACL 0.9% 3 ML SYG IV SCH (15:00)
[2018-06-21] MEDS ORDERED: MECLIZINE 25 MG TAB PO PRN (15:00)
[2018-06-21] MEDS ORDERED: HYDROCODONE/APAP (5/325) TAB PO PRN (15:00)
[2018-06-21] MEDS ORDERED: MECL-77 PO (15:02)
[2018-06-21 15:24] VITALS: BP 129/88; PULSE 62; RESP 18
== END 2018-06-21 15:31 | disposition home or self-care (01) ==
LOC: E/R 13:09 → EDBEDREQ 14:38 → E/R 15:31 → CANBEDREQ 20:15
DX: I48.91 Unspecified atrial fibrillation (principal); J45.909 Unspecified asthma, uncomplicated; E11.9 Type 2 diabetes mellitus without complications; Z79.01 Long term (current) use of anticoagulants; Z79.82 Long term (current) use of aspirin; Z79.84 Long term (current) use of oral hypoglycemic drugs
CPT/HCPCS: 36415; 70450; 80053; 82962; 84484; 85025; 85610; 85730; 93005; 96361; 96374; 99285; J2060; J7030

== ENCOUNTER 2018-09-19 11:22 | Emergency (ER) | payer SELFPAY ==
[~2018-09-19] VITALS: Ht 182.9 cm; Wt 114.0 kg
[~2018-09-19 11:22] MED LIST changes: -ASPI-831 PO; -AZIT250T13 PO; -GLIM1TAB2 PO; +MECL-77 PO; +RIVA20TA5 PO
[2018-09-19 11:31] VITALS: BP 138/99; PULSE 100; RESP 18; Ht 182.9 cm; Wt 114.0 kg
[2018-09-19] MEDS ORDERED: HYDR-4011 PO (20:16)
== END 2018-09-19 13:15 | disposition left against medical advice (07) ==
LOC: FTE 11:22
DX: Z53.21 Procedure and treatment not carried out due to patient leaving prior to being seen by health care provider (principal)

== ENCOUNTER 2018-09-19 16:43 | Emergency (ER) | payer OTHER ==
[~2018-09-19] VITALS: Ht 182.9 cm; Wt 115.0 kg
[2018-09-19 16:47] VITALS: Ht 182.9 cm; Wt 115.0 kg
--- NOTE | 2018-09-19 18:05 | ERD ---
ER Documentation Chief Complaint Chief Complaint pt bib self with c/o right 4th and 5th toes lac s/p fall at 1000am HPI 73-year-old male, presents the emergency department, complaining of right fourth and fifth toe abrasion after direct blunt trauma that occurred approximately 10 AM today. The patient denies distal weakness, numbness or tingling. No fever or chills. ROS All systems reviewed and are negative except as per history of present illness. Medications Home Meds Active Scripts Hydrocodone/Acetaminophen (Standard 5-325 Tablet) 1 Each Tablet, 1 TAB PO TID PRN for PAIN, #12 TAB Prov:BRENDON MAYS MD 09/19/18 Meclizine Hcl* (Meclizine Hcl*) 25 Mg Tablet, 25 MG PO Q8H PRN for DIZZINESS, #30 TAB Prov:LLUVIA ROOT MD 06/21/18 Insulin Glargine* (Lantus*) 100 Unit/Ml Soln, 24 UNIT SC DAILY, #1 VIAL 1 Refill Prov:MARLENI CHRISTENSEN 06/06/18 Albuterol/Ipratropium* (Combivent Respimat*) 20-100 Mcg/Inh - 4 Gm Aer.w.adap, 1 PUFF INHALATION Q4H WHILE AWAKE, #1 INHALER Prov:MARLENI CHRISTENSEN 06/06/18 Diltiazem Hcl* (Cardizem CD*) 180 Mg Cap.sr.24h, 180 MG PO DAILY, #30 TAB 1 Refill Prov:MARLENI CHRISTENSEN 06/06/18 Reported Medications Levothyroxine Sodium* (Levothyroxine Sodium*) 100 Mcg Tablet, 100 MCG PO BEFORE BREAKFAST, #30 TAB 06/21/18 Rivaroxaban* (Xarelto*) 20 Mg Tablet, 20 MG PO WITH DINNER, TAB 06/21/18 Liothyronine Sodium* (Cytomel*) 5 Mcg Tablet, 5 MCG PO BID, TAB 06/05/18 Metformin Hcl* (Metformin Hcl*) 1,000 Mg Tablet, 1000 MG PO WITH BREAKFAST DINNE, #60 TAB 06/05/18 Atorvastatin* (Atorvastatin*) 80 Mg Tablet, 80 MG PO QHS, #30 TAB 06/05/18 Allergies Allergies: Coded Allergies: No Known Allergy (Unverified , 06/21/18) PMhx/Soc History of Surgery: Yes (RT INGUINAL HERNIA REPAIR) Anesthesia Reaction: No Hx Neurological Disorder: No Hx Respiratory Disorders: Yes (EXERCISE INDUCED ASTHMA, ASTHMA) Hx Cardiac Disorders: Yes (AF) Hx Psychiatric Problems: No Hx Miscellaneous Medical Probl: Yes (DM) Hx Alcohol Use: No Hx Substance Use: No Hx Tobacco Use: No FmHx Family History: diabetes; No coronary disease Physical Exam Vitals Vital Signs Date Temp Pulse Resp B/P (MAP) Pulse Ox O2 O2 Flow FiO2 Time Delivery Rate 09/19/18 98.2 80 18 165/80 98 Room Air 20:41 (108) 09/19/18 98.3 74 16 178/68 98 16:47 (104) Physical Exam Const: No acute distress Head: Atraumatic Eyes: Normal Conjunctiva ENT: Normal External Ears, Nose and Mouth. Neck: Full range of motion. No meningismus. Resp: Clear to auscultation bilaterally Cardio: Regular rate and rhythm, no murmurs Abd: Soft, non tender, non distended. Normal bowel sounds Skin: No petechiae or rashes Back: No midline or flank tenderness Ext: Right: Linear laceration in the fourth interdigital space, no cyanosis, or edema Neur: Awake and alert Psych: Normal Mood and Affect Results 24 hrs Current Medications Medications Dose Sig/Carole Start Time Status Last (Trade) Ordered Route PRN Stop Time Admin Dose Reason Admin Morphine 10 mg ONCE ONCE 09/19/18 DC Sulfate PO 19:00 09/19/18 (morphine) 19:01 Ibuprofen 400 mg ONCE ONCE 09/19/18 DC 09/19/18 (Motrin) PO 19:00 09/19/18 19:00 19:01 Patient: ROMEL CANCHOLA : 1945 Age: 73 Sex: M MR #: [id number] DOS: 09/19/18 183 Ordering MD: BRENDON MAYS MD Location: [facility] Room/Bed: PROCEDURE: XR Right Foot. CLINICAL INDICATION: Pain. TECHNIQUE: AP, lateral and oblique views of the right foot was obtained. The images were reviewed on a PACS workstation. COMPARISON: 03/02/2015 FINDINGS: The oblique view is limited. There is redemonstrated moderate degenerative changes of the first and third metacarpal phalangeal joint. There is deformity of the distal aspect of the proximal phalanx of the fifth digit with interarticular involvement suggesting a subacute or older fracture with degenerative changes, not present on the prior study. There is fusion of the interphalangeal joint of the middle and distal phalanx of the fifth digit, unchanged. Joint relationships are maintained. Bone mineralization is within normal limits. Soft tissues are unremarkable. IMPRESSION: 1. Age- indeterminate deformity of the distal aspect of the proximal phalanx of the fifth digit with interarticular deformity and possible osteophytes suggesting a subacute or older injury. 2. Chronic degenerative changes of the foot first digit carpometacarpal joint. 3. 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 Procedures/MDM Vital signs stable, the patient was evaluated for foreign body, open fracture, nerve/vascular/tendon injury. Neurovascular exam intact. clinical impression and possible complications like infection and a scar where discussed with the patient who agreed with management. The patient is stable to be treated outpatient and will be discharged home, some side effects of prescribed medications (headache, rash, nausea, vomiting, diarrhea, interactions with other medications) were reviewed. The patient was instructed to follow up with the primary care provider in the next 48h for wound check. If symptoms persist, worsen or new symptoms develop, then patient should return to the ED immediately. Instructions explained and given directly by me to the patient with acknowledgment and demonstrated understanding. Disclaimer: Inadvertent spelling and grammatical errors are likely due to EHR/dictation software use and do not reflect on the overall quality of patient care. Also, please note that the electronic time recorded on this note does not necessarily reflect the actual time of the patient encounter. Departure Diagnosis: Primary Impression: Injury of toe Condition: Stable Additional Instructions: Thank you very much for allowing us to participate in your care. Your health and safety is our top priority at [facility]. The evaluation in the emergency department has been done to rule out an acute emergency, therefore, chronic conditions like malignancy or other diseases have not been evaluated; therefore, you need to follow up with a primary care provider in the next 48h. If symptoms persist, worsen or new symptoms develop, then patient should return to the ED immediately. Call your primary care doctor TOMORROW for an appointment during the next 2-4 days and bring all the information provided. Have prescriptions filled and follow precisely the directions on the label. If the symptoms get worse and your provider is unavailable, return to the Emergency Department immediately. BRENDON MAYS MD September 19, 2018 18:05
[2018-09-19] MEDS ORDERED: IBUPROFEN 200 MG TAB PO ONE (19:00)
[2018-09-19] MEDS: morphine LIQ (10 MG/5 ML) CUP PO ONE ×2 (19:01→19:06)
[2018-09-19] MEDS ORDERED: HYDR-4011 PO (20:16)
[2018-09-19 20:41] VITALS: BP 165/80; PULSE 80; RESP 18
== END 2018-09-19 20:38 | disposition home or self-care (01) ==
LOC: FTE 16:43
DX: S91.114A Laceration without foreign body of right lesser toe(s) without damage to nail, initial encounter (principal); E11.9 Type 2 diabetes mellitus without complications; J45.909 Unspecified asthma, uncomplicated; W18.39XA Other fall on same level, initial encounter; Y92.9 Unspecified place or not applicable; Z79.4 Long term (current) use of insulin
CPT/HCPCS: 73630; L3260